=== PATIENT | male | born 1965 | race Caucasian/White ===

== ENCOUNTER 2023-01-28 16:44 | Emergency (ER) | payer BC, OTHER | END 2023-01-28 17:17 | disposition home or self-care (01) | LOC: NAV ERS 16:44 | DX: U07.1 COVID-19 (principal); R03.0 Elevated blood-pressure reading, without diagnosis of hypertension; R23.8 Other skin changes; F17.220 Nicotine dependence, chewing tobacco, uncomplicated | CPT/HCPCS: 87635; 99283 ==

== ENCOUNTER 2023-03-16 16:50 | Emergency (ER) | payer OTHER | END 2023-03-16 18:10 | disposition home or self-care (01) | LOC: NAV ERS 16:50 | DX: L23.7 Allergic contact dermatitis due to plants, except food (principal); F17.220 Nicotine dependence, chewing tobacco, uncomplicated | CPT/HCPCS: 99282 ==